=== PATIENT | female | born 1995 | race Caucasian/White ===

== ENCOUNTER 2017-10-01 14:00 | Inpatient (IN) | payer OTHER ==
[2017-10-01 14:36] VITALS: BMI 40.4
[2017-10-08] MEDS ORDERED: CEFAZOLIN/Water 2 GM/20 ML SYRINGE ONE (06:21)
[2017-10-08] MEDS ORDERED: Heparin 5,000 UNITS/ML VIAL ONE (06:21)
[2017-10-08] MEDS ORDERED: Clindamycin/D5W 900 mg/50 ml Premix Bag ONE (06:21)
[2017-10-08] MEDS ORDERED: Levofloxacin 500 mg/D5W 100 ml Premix Bag ONE (06:21)
[2017-10-08] MEDS ORDERED: Famotidine/PF 20 mg/2ml Vial ONE (06:53)
[2017-10-08] MEDS ORDERED: Scopolamine 1.5 mg/72 hour Patch ONE (06:53)
[2017-10-08] MEDS ORDERED: Bupivacaine/Epinephrine 0.25% 30 ML VIAL ONE (06:57)
[2017-10-08] MEDS ORDERED: Fentanyl 250 MCG/5 ML VIAL ONE (07:04)
[2017-10-08] MEDS ORDERED: Ondansetron HCl/PF 4 MG/2 ML Vial ONE (07:36)
[2017-10-08] MEDS ORDERED: Propofol 200 MG/20 ML VIAL ONE (07:36)
[2017-10-08] MEDS ORDERED: Glycopyrrolate 0.2 MG/ML 5 ML SYRINGE ONE (07:36)
[2017-10-08] MEDS ORDERED: PHENYLEPHRINE-NS 100 MCG/ML 10 ML SYRINGE ONE (07:36)
[2017-10-08] MEDS ORDERED: Lidocaine 2% MPF 10 ML AMP (For Epidural Use) ONE (07:36)
[2017-10-08] MEDS ORDERED: Lidocaine 1% PF 5 ML VIAL ONE (07:36)
[2017-10-08] MEDS ORDERED: Dexamethasone 20 MG/5 ML VIAL ONE (07:36)
[2017-10-08] MEDS ORDERED: diphenhydrAMINE 50 MG/ML VIAL IVP PRN ×2 (08:56→09:12)
[2017-10-08] MEDS ORDERED: hydrALAZINE 20 MG/ML VIAL SLOW IVP PRN (08:56)
[2017-10-08] MEDS ORDERED: Dextrose 5% in Water 1,000 ML IV PRN (08:56)
[2017-10-08] MEDS ORDERED: Dextrose 50% Abboject 50 ML SYRINGE SLOW IVP PRN (08:56)
[2017-10-08] MEDS ORDERED: Hydrocodone-Acetamin 15 ML UDCUP PO PRN (08:56)
[2017-10-08] MEDS ORDERED: Ondansetron HCl/PF 4 MG/2 ML Vial IVP PRN ×3 (08:56→09:12)
[2017-10-08] MEDS ORDERED: Promethazine HCl 25 MG/ML VIAL IM PRN ×3 (08:56→09:12)
[2017-10-08] MEDS ORDERED: diphenhydrAMINE 25 MG CAP PO PRN (09:12)
[2017-10-08] MEDS ORDERED: Zolpidem Tartrate 5 MG TAB PO PRN (09:12)
[2017-10-08] MEDS ORDERED: Morphine Sulfate 2 MG/ML SYRINGE SLOW IVP PRN (09:12)
[2017-10-08] MEDS ORDERED: Ketorolac Tromethamine 30 MG/ML VIAL IVP PRN (09:12)
[2017-10-08] MEDS ORDERED: HYDROmorphone 2 MG/ML VIAL SLOW IVP PRN (09:12)
[2017-10-08] MEDS ORDERED: Fentanyl 5000 MCG/250 ML CADD IVPB PRN (09:12)
[2017-10-08] MEDS ORDERED: Promethazine HCl 25 MG/ML VIAL SLOW IVP PRN (09:12)
[2017-10-08] MEDS ORDERED: diphenhydrAMINE 50 MG/ML VIAL IM PRN (09:12)
[2017-10-08] MEDS ORDERED: Naloxone HCl 0.4 mg/ml Vial IV PRN (09:12)
[2017-10-08] MEDS ORDERED: Meperidine HCl/PF 25 MG/ML VIAL SLOW IVP PRN (09:12)
[2017-10-08] MEDS ORDERED: [UNRECOGNIZED DRUG - REMARK] FS SCH (09:15)
--- NOTE | 2017-10-08 10:18 | OP ---
DATE OF PROCEDURE: 10/08/2017 PREOPERATIVE DIAGNOSIS: Morbid obesity. SURGEON: Clarence Beltre M.D. PROCEDURE: Laparoscopic sleeve gastrectomy with esophagogastroscopy. INDICATIONS: This is a 21-year-old female, morbidly obese, who has attempted multiple weight loss pr ograms without success. FINDINGS: A 38 Jamaican bougie used. PROCEDURE IN DETAIL: After informed consent was obtained, the patient was taken to the operating shelly m and given general endotracheal anesthesia. She was placed in the supine position. Her abdomen wer e prepped and draped in the usual fashion. Local anesthesia infiltrated subcutaneously and deep. A 12 mm incision was performed approximately 8 inches below the xiphoid slightly to the left. Veress n eedle inserted. Drop test performed. Pneumoperitoneum was created to a volume of 2 liters of carbon dioxide. Utilizing a bladeless 12 mm trocar and 0 degree laparoscope direct visual entry in the abd ominal cavity was performed. Pneumoperitoneum was created to a pressure of 15 mmHg. A 0 degree lapa roscope inserted and under direct vision, a Yosvany liver retractor was inserted. Left lobe of baldemar er retracted superiorly. The pylorus identified, a 12 mm port placed on the right beneath it and two 12s placed left subcostal. The omentum was taken off the greater curvature utilizing the LigaSure 5 cm from the pylorus. The short gastrics divided with the LigaSure and the left crura defined with t he LigaSure. A 38-Jamaican bougie inserted directed into the antrum. The linear 60 mm green load stap ler used to divide the antrum to the bougie, gold load along the bougie, and a series of blues throug h the angle of His. Intraoperative endoscopy was performed. The video endoscope inserted under dire ct vision and advanced into the sleeve. The staple line inspected. There was no bleeding. Staple l ine then tested by inflating the new stomach with pressurized air under water. There was no air leak . Stomach decompressed. Scope removed. The remnant stomach removed from the abdomen through the le ft lateral port site. The fascia closed with 0 Vicryl suture and the GraNee needle. Intraoperative endoscopy was performed. The video endoscope inserted under direct vision. The staple line inspecte d. There was no bleeding. Staple line then tested by inflating the new stomach with pressurized air under water. There was no air leak. Stomach decompressed. Scope removed. The trocars and retract ors removed. The skin closed with interrupted 4-0 Rapide. Dermabond applied. The patient tolerated the procedure well and transferred to recovery in good condition. Sponge and needle count verified correct x2.
[2017-10-08] MEDS: Ketorolac Tromethamine 30 MG/ML VIAL IVP SCH ×2 (12:55→17:46)
[2017-10-08] MEDS: D5 1/2 NS w/20 mEq KCL 1,000 ML IV SCH ×2 (12:58→17:50)
[2017-10-08] MEDS: Pantoprazole 40 MG VIAL IVP SCH (13:00)
[2017-10-09] MEDS: D5 1/2 NS w/20 mEq KCL 1,000 ML IV SCH ×2 (00:05→05:16)
[2017-10-09] MEDS: Ketorolac Tromethamine 30 MG/ML VIAL IVP SCH ×2 (00:05→05:16)
[2017-10-09 04:37] LABS: #Lymphocytes 2.8 thou/uL (1.20-3.40); #Neutrophils 9.2 thou/uL (1.40-6.50); %Eosinophils 0.2 % (0.0-10.0); %Lymphocytes 21.3 % (21.0-51.0); %Monocytes 7.8 % (0.0-10.0); Hematocrit 34.9 % (36.0-47.0); White Blood Cell (WBC) Count 13.1 thou/uL (4.8-10.8)
[2017-10-09 04:49] LABS: Anion Gap 10 mmol/L (10-20); BUN (Urea Nitrogen) 9 mg/dL (7.0-18.7); Calc. Creatinine Clearance 176 mL/min (70-130); Calcium 8.3 mg/dL (7.8-10.44); Carbon Dioxide 23 mmol/L (22-29); Chloride 108 mmol/L (98-107); Estimated GFR-MDRD 90
[2017-10-09] MEDS ORDERED: Enoxaparin Sodium 40 MG/0.4 ML SYRINGE SC SCH (09:00)
--- NOTE | 2017-10-09 09:34 | RAD ---
15 CC GASTROGRAFIN SWALLOW: Date: 10-09-17 Comparison: None. History: 21-year-old female status post gastric sleeve procedure. FINDINGS: The patient ingested 15 cc of Gastrografin. The contrast media fills the distal esophagus and heather es the gastroesophageal junction without difficulty. The contrast media then extends into the proximal duodenum and is imaged through the region of the du odenal jejunal junction. There is no evidence for leak or obstruction. IMPRESSION: No evidence for leak or obstructing following gastric sleeve procedure. POS: [facility]
[2017-10-09] MEDS: Pantoprazole 40 MG VIAL IVP SCH (09:44)
[2017-10-09 12:12] VITALS: BP 105/69; TEMP 98.5
[2017-10-09] MEDS ORDERED: GASTROGRAFIN 30 ML BOT ONE (14:00)
--- NOTE | 2017-10-09 20:53 | DIS ---
DISCHARGE DIAGNOSIS: Morbid obesity. PROCEDURES DURING ADMISSION: Laparoscopic sleeve gastrectomy, intraoperative esophagogastroscopy, po stoperative Gastrografin swallow. HOSPITAL COURSE: The patient was admitted, taken to the operating room where she underwent sleeve ga strectomy. Postoperatively, she has done well. Her swallow was fine. She is tolerating liquids wel l. She is discharged home in good condition on hydrocodone and Zofran. She will follow up with me [facility] 2 weeks.
--- NOTE | 2017-10-10 14:01 | HP ---
CHIEF COMPLAINT: Morbid obesity. HISTORY: The patient is a 21-year-old female, morbidly obese, who has attempted multiple weight loss programs without success. She is here for sleeve gastrectomy. PAST MEDICAL HISTORY: Seasonal allergies, low back pain, anxiety, depression. PAST SURGICAL HISTORY: None. MEDICATIONS: Mirena and Wellbutrin. ALLERGIES: PENICILLIN. FAMILY HISTORY: Both parents are alive and in good health. SOCIAL HISTORY: She is single. No tobacco. Occasional alcohol. PHYSICAL EXAMINATION: VITAL SIGNS: Height 5 feet 2, weight 221, body mass index 40.42, blood pressure 116/89, pulse 89. GENERAL: She is a well-developed, well-nourished female in no apparent distress. HEENT: Hair growth good. No alopecia. Pupils are equal, round, and reactive. Extraocular motor in tact. Pharynx clear. Good dentition. NECK: Supple, no thyroid masses, no carotid bruits. LUNGS: Clear. HEART: Regular rate and rhythm. BREASTS: No palpable breast masses. No lymphadenopathy. No skin changes. ABDOMEN: Soft, nondistended, nontender, no palpable masses or hernias. EXTREMITIES: Good pulses. No pedal edema. BACK: Nontender, no spinal deformity. ASSESSMENT: Morbid obesity. PLAN: Laparoscopic sleeve gastrectomy. CONSENT: I have discussed the planned procedure as well as risk of bleeding, infection, injury to es ophagus, spleen, loops of bowel, need to open, leakage from staple line. She understands and gives i nformed consent.
== END 2017-10-09 13:20 | disposition home or self-care (01) | DRG 621 ==
LOC: SURG A 10-08 06:07
PROVIDERS: ADMIT Surgery; ATTEND Surgery
PROC: 0DB64Z3 Excision of Stomach, Percutaneous Endoscopic Approach, Vertical (ICD-10-PCS; principal; 2017-10-08)
PROC: 0DJ68ZZ Inspection of Stomach, Via Natural or Artificial Opening Endoscopic (ICD-10-PCS; 2017-10-08)
DX: E66.01 Morbid (severe) obesity due to excess calories (principal); Z88.0 Allergy status to penicillin; Z68.41 Body mass index [BMI] 40.0-44.9, adult
CPT/HCPCS: 36415; 74241; 80048; 85025; 88307; 88312; 94760; C9113; J0131; J1100; J1644; J1650; J1885; J1956; J2001; J2405; J2704; J3010; J3490; S0028

== ENCOUNTER 2017-10-01 14:14 | Outpatient (CLI) | payer OTHER ==
[2017-10-01 15:11] LABS: #Eosinphils 0.1 thou/uL (0.0-0.7); #Lymphocytes 3.3 thou/uL (1.20-3.40); #Monocytes 0.6 thou/uL (0.11-0.59); #Neutrophils 6.2 thou/uL (1.40-6.50); %Basophils 0.4 % (0.0-1.0); %Eosinophils 1.2 % (0.0-10.0); %Monocytes 5.7 % (0.0-10.0); Hematocrit 39.6 % (36.0-47.0); Mean Platelet Volume 8.1 fL (7.4-10.4); Red Blood Cell (RBC) Count 4.46 mill/uL (4.20-5.40); White Blood Cell (WBC) Count 10.3 thou/uL (4.8-10.8)
[2017-10-01 15:20] LABS: Hemoglobin A1c 5.6 % (4.0-6.0)
[2017-10-01 15:32] LABS: ALT (SGPT) 38 U/L (8-55); AST (SGOT) 22 U/L (5-34); Alkaline Phosphatase 39 U/L (40-150); Anion Gap 17 mmol/L (10-20); BUN (Urea Nitrogen) 12 mg/dL (7.0-18.7); Bilirubin, Direct 0.2 mg/dL (0.1-0.3); Bilirubin, Total 0.4 mg/dL (0.2-1.2); Calc. Creatinine Clearance 0 mL/min (70-130); Calcium 9.2 mg/dL (7.8-10.44); Carbon Dioxide 19 mmol/L (22-29); Chloride 107 mmol/L (98-107); Estimated GFR-MDRD 89; Globulin 2.7 g/dL (2.4-3.5); Protein, Total 7.2 g/dL (6.0-8.3)
--- NOTE | 2017-10-01 18:11 | RAD ---
PA AND LATERAL CHEST: Date: 10-01-17 Comparison: None. History: Pre-operative patient. FINDINGS: No pneumothorax, pleural fluid, focal consolidation, or alveolar edema. Heart and mediastinal contou rs are unremarkable. IMPRESSION: No acute findings. POS: [facility]
--- NOTE | 2017-10-01 22:13 | EKG ---
Test Reason : Blood Pressure : / mmHG Vent. Rate : 074 BPM Atrial Rate : 074 BPM P-R Int : 136 ms QRS Dur : 078 ms QT Int : 394 ms P-R-T Axes : 042 079 043 degrees QTc Int : 437 ms Normal sinus rhythm with sinus arrhythmia Normal ECG No previous ECGs available Confirmed by DR. Jeet ASENCIO MD ([id number]) on 10/01/2017 10:13:18 PM Referred By: GIGI Confirmed By:DR. Jeet ASENCIO MD
== END 2017-10-01 14:15 | disposition home or self-care (01) ==
LOC: LABBT 14:14
PROVIDERS: ATTEND Surgery
DX: Z01.818 Encounter for other preprocedural examination (principal); E66.01 Morbid (severe) obesity due to excess calories
CPT/HCPCS: 71020; 80053; 80076; 83036; 84703; 85025; 93005; 93010

== ENCOUNTER 2023-01-10 22:31 | Emergency (ER) | payer BC, OTHER ==
[2023-01-10 23:33] LABS: #Basophils 0.1 thou/uL (0.0-0.2); #Eosinphils 0.2 thou/uL (0.0-0.7); #Lymphocytes 2.7 thou/uL (1.20-3.40); #Monocytes 0.9 thou/uL (0.11-0.59); #Neutrophils 9.3 thou/uL (1.40-6.50); %Basophils 0.4 % (0.0-1.0); %Eosinophils 1.2 % (0.0-10.0); %Lymphocytes 20.4 % (21.0-51.0); %Monocytes 6.8 % (0.0-10.0); %Neutrophils 71.1 % (42.0-75.0); Hemoglobin 10.8 g/dL (12.0-16.0); Mean Corpuscular HGB CONC 34.8 g/dL (32.0-36.0); Mean Corpuscular Hemoglobin 31.3 pg (27.0-31.0); Mean Platelet Volume 8.6 fL (7.4-10.4); Platelet Count 247 10x3/uL (130-400); RBC Distribution Width 11.2 % (11.5-14.5); Red Blood Cell (RBC) Count 3.46 mill/uL (4.20-5.40); White Blood Cell (WBC) Count 13.1 10x3/uL (4.8-10.8)
[2023-01-10 23:39] LABS: BHCG - Serum Negative (NEGATIVE); Pregs Control Background? CLEAR/WHITE (CLR/WHITE); Pregs Control Bar Appear? YES (CONTROL BAR)
[2023-01-10 23:58] LABS: ALT (SGPT) 15 U/L (8-55); AST (SGOT) 14 U/L (5-34); Albumin 3.6 g/dL (3.5-5.0); Alkaline Phosphatase 37 U/L (40-110); Anion Gap 12 mmol/L (10-20); BUN (Urea Nitrogen) 17 mg/dL (7.0-18.7); Bilirubin, Total 0.2 mg/dL (0.2-1.2); Calc. Creatinine Clearance 0 mL/min (70-130); Calcium 8.8 mg/dL (7.8-10.44); Carbon Dioxide 21 mmol/L (22-29); Chloride 107 mmol/L (98-107); Estimated GFR 82; Globulin 2.4 g/dL (2.4-3.5); Glucose 161 mg/dL (70-105); Potassium 3.3 mmol/L (3.5-5.1); Sodium 137 mmol/L (136-145)
[2023-01-11] MEDS ORDERED: Potassium Chloride 20 MEQ TAB ONE (00:25)
== END 2023-01-11 01:09 | disposition home or self-care (01) ==
LOC: ERS 22:31
DX: I95.1 Orthostatic hypotension (principal); D72.829 Elevated white blood cell count, unspecified; K21.9 Gastro-esophageal reflux disease without esophagitis
CPT/HCPCS: 36415; 71045; 80053; 83735; 84703; 85025; 93005; 96360; 96361